=== PATIENT | female | born 1965 | race Caucasian/White ===

== ENCOUNTER 2016-09-17 08:56 | Emergency (ER) | payer OTHER ==
[2016-09-17] MEDS ORDERED: Fentanyl 100 MCG/2 ML VIAL ONE ×2 (09:18→10:14)
[2016-09-17 09:27] LABS: #Basophils 0.1 thou/uL (0.0-0.2); #Eosinphils 0.1 thou/uL (0.0-0.7); #Lymphocytes 2.3 thou/uL (1.20-3.40); #Monocytes 0.5 thou/uL (0.11-0.59); #Neutrophils 5.7 thou/uL (1.40-6.50); %Basophils 1.2 % (0.0-1.0); %Eosinophils 1.7 % (0.0-10.0); %Lymphocytes 26.5 % (21.0-51.0); %Monocytes 5.5 % (0.0-10.0); %Neutrophils 65.1 % (42.0-75.0); Hemoglobin 15.8 g/dL (12.0-16.0); Mean Corpuscular HGB CONC 34.5 g/dL (32.0-36.0); Mean Corpuscular Volume 95.7 fl (81.0-99.0); Mean Platelet Volume 7.4 fL (7.4-10.4); Platelet Count 245 thou/uL (130-400); RBC Distribution Width 12.5 % (11.5-14.5); White Blood Cell (WBC) Count 8.7 thou/uL (4.8-10.8)
[2016-09-17 09:39] LABS: Anion Gap 14 mmol/L (10-20); BUN (Urea Nitrogen) 16 mg/dL (9.8-20.1); Calc. Creatinine Clearance 0 mL/min (70-130); Calcium 9.2 mg/dL (7.8-10.44); Carbon Dioxide 23 mmol/L (22-29); Chloride 111 mmol/L (98-107); Estimated GFR-MDRD 71; Glucose 133 mg/dL (70-105); Potassium 4.2 mmol/L (3.5-5.1); Sodium 144 mmol/L (136-145)
--- NOTE | 2016-09-17 11:48 | RAD ---
LEFT ANKLE THREE VIEWS: Date: 09-17-16 FINDINGS: A bimalleolar fracture is present. One sees a transverse fracture of the medial malleolus with very minimal displacement and an oblique fracture of the distal fibula that extends to the lateral malleo jony with only slight displacement. The ankle mortise is probably widened slightly on the medial side . The posterior tibia appears intact. A calcaneal spur was noted. IMPRESSION: Bimalleolar fracture. POS: HOME
== END 2016-09-17 11:08 | disposition home or self-care (01) ==
LOC: BURERS 08:56
DX: S82.842A Displaced bimalleolar fracture of left lower leg, initial encounter for closed fracture (principal); I10 Essential (primary) hypertension; F17.210 Nicotine dependence, cigarettes, uncomplicated; Z79.899 Other long term (current) drug therapy; W01.0XXA Fall on same level from slipping, tripping and stumbling without subsequent striking against object, initial encounter
CPT/HCPCS: 29515; 80048; 85025; 96374; 96376; J3010

== ENCOUNTER 2018-04-21 13:07 | Emergency (ER) | payer OTHER ==
[2018-04-21 13:28] LABS: #Basophils 0.1 thou/uL (0.0-0.2); #Eosinphils 0.3 thou/uL (0.0-0.7); #Lymphocytes 2.3 thou/uL (1.20-3.40); #Monocytes 0.5 thou/uL (0.11-0.59); #Neutrophils 5.4 thou/uL (1.40-6.50); %Basophils 1.4 % (0.0-1.0); %Lymphocytes 26.5 % (21.0-51.0); %Neutrophils 62.1 % (42.0-75.0); Hemoglobin 15.1 g/dL (12.0-16.0); Mean Corpuscular HGB CONC 35.5 g/dL (32.0-36.0); Mean Corpuscular Volume 92.8 fL (78.0-98.0); Mean Platelet Volume 6.8 fL (7.4-10.4); Platelet Count 231 thou/uL (130-400); RBC Distribution Width 11.9 % (11.5-14.5); Red Blood Cell (RBC) Count 4.57 mill/uL (4.20-5.40); White Blood Cell (WBC) Count 8.6 thou/uL (4.8-10.8)
[2018-04-21] MEDS ORDERED: Nitroglycerin 0.4 MG TAB (25 Tab Bottle) ONE ×2 (13:28→13:57)
[2018-04-21 13:43] LABS: ALT (SGPT) 25 U/L (8-55); AST (SGOT) 17 U/L (5-34); Albumin 3.9 g/dL (3.5-5.0); Alkaline Phosphatase 73 U/L (40-150); Anion Gap 13 mmol/L (10-20); BUN (Urea Nitrogen) 18 mg/dL (9.8-20.1); Bilirubin, Total 0.3 mg/dL (0.2-1.2); Calc. Creatinine Clearance 0 mL/min (70-130); Calcium 9.7 mg/dL (7.8-10.44); Carbon Dioxide 28 mmol/L (22-29); Chloride 106 mmol/L (98-107); Estimated GFR-MDRD 76; Globulin 2.4 g/dL (2.4-3.5); Glucose 115 mg/dL (70-105); Lipase 42 U/L (8-78); Potassium 3.6 mmol/L (3.5-5.1); Protein, Total 6.3 g/dL (6.0-8.3); Sodium 143 mmol/L (136-145)
[2018-04-21] MEDS ORDERED: Nitroglycerin 2% Ointment 1 INCH/1 GM Packet ONE (15:05)
--- NOTE | 2018-04-21 17:59 | RAD ---
PORTABLE CHEST: 04/21/18 Comparison is made with the 11/24/15 study. The heart size is unchanged, being upper normal. There is no vascular congestion, edema, or pleural e ffusion. The lungs are clear. The bony structures showed no acute change. IMPRESSION: No acute thoracic finding. POS: HOME
[2018-04-21] MEDS ORDERED: Lisinopril 20 MG TAB ONE (21:09)
[2018-04-22] MEDS ORDERED: Ibuprofen 800 MG TAB ONE (08:13)
== END 2018-04-22 08:58 | disposition home or self-care (01) ==
LOC: BURERS 13:07
DX: I20.9 Angina pectoris, unspecified (principal); I10 Essential (primary) hypertension; F17.210 Nicotine dependence, cigarettes, uncomplicated; Z79.899 Other long term (current) drug therapy
CPT/HCPCS: 36415; 71045; 80053; 83690; 84484; 85025; 93005; 94760

== ENCOUNTER 2019-02-03 14:15 | Emergency (ER) | payer OTHER, SELFPAY | END 2019-02-03 15:15 | disposition home or self-care (01) | LOC: BURERS 14:15 | DX: M70.62 Trochanteric bursitis, left hip (principal); F17.210 Nicotine dependence, cigarettes, uncomplicated; I10 Essential (primary) hypertension; Z79.899 Other long term (current) drug therapy | CPT/HCPCS: 99283 ==

== ENCOUNTER 2022-01-26 13:36 | Emergency (ER) | payer SELFPAY ==
[2022-01-26 15:06] LABS: #Basophils 0.1 thou/uL (0.0-0.2); #Eosinphils 0.2 thou/uL (0.0-0.7); #Lymphocytes 1.9 thou/uL (1.20-3.40); #Monocytes 0.5 thou/uL (0.11-0.59); #Neutrophils 4.4 thou/uL (1.40-6.50); %Basophils 1.6 % (0.0-1.0); %Eosinophils 3.1 % (0.0-10.0); %Lymphocytes 26.9 % (21.0-51.0); %Monocytes 6.6 % (0.0-10.0); %Neutrophils 61.7 % (42.0-75.0); Hemoglobin 16.7 g/dL (12.0-16.0); Mean Corpuscular HGB CONC 32.4 g/dL (32.0-36.0); Mean Corpuscular Volume 98.6 fL (78.0-98.0); Mean Platelet Volume 7.7 fL (7.4-10.4); Platelet Count 238 thou/uL (130-400); RBC Distribution Width 12.6 % (11.5-14.5); Red Blood Cell (RBC) Count 5.23 mill/uL (4.20-5.40); White Blood Cell (WBC) Count 7.1 thou/uL (4.8-10.8)
[2022-01-26 15:19] LABS: ALT (SGPT) 21 U/L (8-55); AST (SGOT) 17 U/L (5-34); Alkaline Phosphatase 84 U/L (40-110); Anion Gap 14 mmol/L (10-20); BUN (Urea Nitrogen) 14 mg/dL (9.8-20.1); Bilirubin, Total 0.7 mg/dL (0.2-1.2); CK (CPK) 70 U/L (29-168); Calc. Creatinine Clearance 0 mL/min (70-130); Calcium 9.3 mg/dL (7.8-10.44); Carbon Dioxide 25 mmol/L (22-29); Chloride 110 mmol/L (98-107); Estimated GFR 88; Globulin 2.2 g/dL (2.4-3.5); Glucose 106 mg/dL (70-105); Potassium 4.1 mmol/L (3.5-5.1); Protein, Total 6.2 g/dL (6.0-8.3); Sodium 145 mmol/L (136-145)
[2022-01-26] MEDS ORDERED: Lidocaine Viscous Sol 2% 15 ml UD Cup ONE (15:43)
[2022-01-26] MEDS ORDERED: Mag-Al Plus 1200 MG/1200 MG/120 MG/30 ML UDCUP ONE (15:43)
== END 2022-01-26 19:03 | disposition home or self-care (01) ==
LOC: BURERS 13:36
DX: R07.89 Other chest pain (principal); I10 Essential (primary) hypertension; F17.210 Nicotine dependence, cigarettes, uncomplicated; E11.9 Type 2 diabetes mellitus without complications; E78.5 Hyperlipidemia, unspecified
CPT/HCPCS: 36415; 71045; 80053; 82550; 84484; 85025; 93005

== ENCOUNTER 2022-04-22 10:08 | Emergency (ER) | payer SELFPAY ==
[2022-04-22] MEDS ORDERED: Boostrix 0.5 ML (Tdap) VIAL (>/=7 yrs of age) ONE (10:18)
[2022-04-22] MEDS ORDERED: Lidocaine 1% PF 5 ML VIAL ONE (10:18)
[2022-04-22] MEDS ORDERED: Bacitracin 1 PK ONE (11:20)
== END 2022-04-22 11:42 | disposition home or self-care (01) ==
LOC: BURERS 10:08
DX: S67.193A Crushing injury of left middle finger, initial encounter (principal); S62.633B Displaced fracture of distal phalanx of left middle finger, initial encounter for open fracture; I10 Essential (primary) hypertension; F17.210 Nicotine dependence, cigarettes, uncomplicated; W23.1XXA Caught, crushed, jammed, or pinched between stationary objects, initial encounter; Z79.899 Other long term (current) drug therapy
CPT/HCPCS: 12002; 90715